=== PATIENT | male | born 1995 | race Caucasian/White ===

== ENCOUNTER 2020-12-02 09:47 | Inpatient (IN) | payer OTHER, SELFPAY ==
[2020-12-02] VITALS (14 sets, daily range): BP systolic 101–131; BP diastolic 56–77; PULSE 92–122; RESP 12–22; TEMP 36.8–37.7; O2SAT 92–97; BMI 30.4; BMI 27.3
--- NOTE | ~2020-12-02 | CT_ITS ---
EXAMINATION: CT SOFT TISSUE NECK WITHOUT CONTRAST CLINICAL INFORMATION: Concern for epiglottitis COMPARISON: None TECHNIQUE: Helical imaging was performed in the axial plane with generation of coronal and sagittal reformatted images. This CT examination was performed using dose optimization techniques as appropriate, variously including the following: *Automated exposure control *Adjustment of mA and/or kV according to patient size (this includes techniques or standardized protocols for targeted exams where dose is matched to indication/reason for exam; i.e. extremities or head) *Use of iterative reconstruction technique DLP: 495 mGy-cm FINDINGS: The epiglottis is normal. There is mild prominence of the palatine tonsils bilaterally consistent with tonsillitis .These are occluding the nasopharynx. The hypopharynx is normal as is the proximal trachea. There is no abscess. There are multiple mildly enlarged lymph nodes bilateral, primarily affecting the level 2A and 2B lymph nodes. These are likely reactive. CT/CT soft tissue neck wo con IMPRESSION: 1. Normal epiglottis. 2. Enlarged palatine tonsils consistent with tonsillitis. No abscess. 3. There are multiple mildly enlarged lymph nodes bilateral, primarily affecting the level 2A and 2B lymph nodes. These are likely reactive.
[2020-12-02 12:55] LABS: Mean Corpuscular Hemoglobin 28.5 pg (27.0-33.0); PLT CLUMP 1; Red Cell Distribution Width 14.8 % (11.0-16.0)
[2020-12-02 12:57] LABS: Hematocrit 42.7 % (42-52); Hemoglobin 14.8 g/dl (14.0-18.0); Mean Corpuscular HGB Conc 34.7 g/dl (31.0-36.0); Mean Corpuscular Volume 82.1 fL (80-98); Mean Platelet Volume 10.8 fL (9.4-12.4); Platelet Count 140 X10*3/uL (160-400)
[2020-12-02 13:05] LABS: WBC ABN SCTR FOR CBC 1
[2020-12-02 13:10] LABS: Alanine Aminotransferase 701 U/L (0-40); Albumin Level 3.7 g/dL (3.5-5.0); Alkaline Phosphatase 615 U/L (39-117); Anion Gap 14 (12-20); Aspartate Amino Transferase 242 U/L (5-37); Bilirubin Total 14.1 mg/dL (0.0-1.0); Blood Urea Nitrogen 9 mg/dL (9-16); Calcium 8.7 mg/dL (8.4-10.2); Carbon Dioxide 27 mmol/L (22-29); Chloride 94 mmol/L (96-108); Creatinine Clr Calc Pharmacy 133.9; Estimated Glomerular Filt Rate > 60; Glucose Random 95 mg/dL (60-115); Potassium 4.2 mmol/L (3.3-5.1); Sodium 131 mmol/L (135-145); Total Protein 8.2 g/dL (6.5-8.0)
--- NOTE | 2020-12-02 13:10 | ED.GENADULT ---
HPI - General Adult General Chief complaint: Upper Respiratory Symptoms Stated complaint: infection - Time Seen by Provider: 12/02/20 13:09 Source: patient Mode of arrival: ambulatory Limitations: no limitations History of Present Illness HPI narrative: 25-year-old male who is otherwise healthy presented for evaluation of rash and itching with facial swelling. Patient started by his ENT a week ago on a course of clindamycin for throat infection. Since yesterday patient started to have a diffuse rash with itching, swelling of the throat, with change of voice, but no difficulty breathing. Patient has been having issue with his throat for many weeks until he saw his ENT last week and start him on clindamycin. Patient declined fever or chills, no recent exposure to sick contacts. Patient is able to speak in a full sentence. Related Data Allergies Allergy/AdvReac Type Severity Reaction Status Date / Time No Known Allergies Allergy Verified 12/02/20 10:43 Review of Systems Review of Systems: All other systems are reviewed and are negative Constitutional: Reports as per HPI and Reports no additional constitutional complaints Eyes: Reports as per HPI and Reports no additional eye complaints Reports system reviewed and no additional complaints, except as documented Cardiovascular: Reports as per HPI and Reports no additional cardiovascular complaints Respiratory: Reports as per HPI and Reports no additional respiratory complaints Gastrointestinal: Reports as per HPI and Reports no additional gastrointestinal complaints Genitourinary: Reports no additional female genitourinary complaints Musculoskeletal: Reports no additional musculoskeletal complaints Skin/Breast: Reports system reviewed and no additional complaints, except as docu Psychiatric: Reports no additional psychiatric complaints Endocrine: Reports no additional endocrine complaints Hematologic/Lymphatic: Reports no additional hematologic/lymphatic complaints Allergic/Immunologic: Reports no additional allergic/immunologic complaints Reports system reviewed and no additional complaints, except as documented and Reports Abnormal speech present FORMERLY [facility], [facility] Past Medical History Medical History Patient denies having any allergies Patient denies medical problems Social History Social History Alcohol intake: never Patient Tobacco Use Status: Never used Tobacco Use of substances other than those prescribed or required for medical reasons: No Advance Directives: No Physical Exam Vital Signs: Vital Signs: Last Vital Signs Temp 98.7 F 12/02/20 15:49 Pulse 122 H 10/05/21 15:49 Resp 20 12/02/20 15:49 BP 131/63 12/02/20 15:49 Pulse Ox 96 12/02/20 15:49 Body Mass Index 30.4 Vital signs have been reviewed as appeared to be correct. Blood pressure normal. Heart rate normal. Respiration rate normal. Temperature normal. Oxygen saturation normal. Appearance: Alert. Oriented X3. No acute distress. Head: Normal external exam. Normocephalic. Atraumatic. No Gr signs noted. No raccoon eyes noted Eyes: PERRLA. EOMI. Conjunctiva and sclera normal. Eyelids normal. ENT: TM's Normal. Pharynx normal. The large it bilateral tonsils with white exudate, no stridor, no drooling. Uvula midline. Moist mucous membranes. No trismus noted. No drooling noted. Mild muffled voice noted. Neck: Normal inspection. Neck supple. FROM. No adenopathy. Thyroid Normal. No meningeal signs. No neck mass noted. CVS: Normal heart rate and rhythm. Heart sound normal. No murmurs noted. Pulses normal throughout. Respiratory: No respiratory distress. Painless inspiration. Breath sounds normal. No wheezes/rales/rhonchi noted. Chest nontender. No accessory muscle usage noted or decreased air movement noted. Abdomen: Soft and nontender. Bowel sounds normal in all 4 quadrants. No distention noted. No organomegaly noted. No visible injury noted. Back: No CVA tenderness. Full range of motion noted. Skin: Skin warm and dry. Normal skin color. Diffuse maculopapular rash on the arms and torso and face. Extremities: No lower extremity edema. Extremities exhibit normal range of motion. Extremities nontender. Neuro: Oriented X 3. Cranial nerve exam: II-XII are grossly intact No motor deficit. No sensory deficit. Reflexes normal. Course Course Course Narrative: Assessment and plan. 25-year-old male had Augmentin that was discontinued by the ENT doctor then replaced by clindamycin for a week, patient is showing leukocytosis with bandemia, patient also is showing transaminitis. 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 Continue with fluid/Solu-Medrol/Pepcid/epinephrine p.r.n.. Continue with hydration and discontinue with clindamycin. The case discussed with Dr. lee who will admit the patient to ICU. Medical Decision Making Lab Data Lab results reviewed: Yes I reviewed the patient's lab results. Result diagrams: 12/02/20 12:36 12/02/20 12:36 Labs: Lab Results 12/02/20 12/02/20 12/02/20 Range/Units 12:36 12:36 13:30 WBC 23.7 H (4.8-10.8) X10*3/uL RBC 5.20 (4.60-5.80) X10*6/uL Hgb 14.8 (14.0-18.0) g/dl Hct 42.7 (42-52) % MCV 82.1 (80-98) fL MCH 28.5 (27.0-33.0) pg MCHC 34.7 (31.0-36.0) g/dl RDW 14.8 (11.0-16.0) % Plt Count 140 L (160-400) X10*3/uL MPV 10.8 (9.4-12.4) fL Immature Gran % (Auto) Cancelled Neut % (Auto) Cancelled Lymph % (Auto) Cancelled Rush % (Auto) Cancelled Eos % (Auto) Cancelled Baso % (Auto) Cancelled Lymph # (Auto) Cancelled Rush # (Auto) Cancelled Eos # (Auto) Cancelled Baso # (Auto) Cancelled Abs Immat Gran (auto) Cancelled Absolute Neuts (auto) Cancelled Absolute Nucleated RBC 0.000 (0.0-0.012) X10*3/uL Nucleated RBC % (auto) 0.0 (0.0-0.2) /100WBC Neutrophils % (Manual) 16 L (45-73) % Band Neutrophils % 12 H (3-5) % Lymphocytes % (Manual) 40 (20-40) % Atypical Lymphs % (Man) 13 H (0-6) % Monocytes % (Manual) 14 H (2-11) % Metamyelocytes % 5 % Abs Neuts (Manual) 6.6 (2.2-7.9) X10*3/uL Lymphocytes # (Manual) 9.5 H (0.6-4.8) X10*3/uL Atyp Lymphs # (Manual) 3.1 x10*3/uL Monocytes # (Manual) 3.3 H (0.0-1.2) X10*3/uL Metamyelocytes # 1.2 X10*3/uL Platelet Estimate SLIGHTLY DECREASED (NORMAL) Plt Morphology Comment NORMAL RBC Morphology NOTED Polychromasia 1+ (0-2) /OIF Macrocytosis 1+ (5-14) /OIF Sodium 131 L (135-145) mmol/L Potassium 4.2 (3.3-5.1) mmol/L Chloride 94 L (96-108) mmol/L Carbon Dioxide 27 (22-29) mmol/L Anion Gap 14 (12-20) BUN 9 (9-16) mg/dL Creatinine 0.93 (0.5-1.4) mg/dL Estim Creat Clear Calc 133.9 Estimated GFR > 60 Random Glucose 95 (60-115) mg/dL Calcium 8.7 (8.4-10.2) mg/dL Total Bilirubin 14.1 H (0.0-1.0) mg/dL AST 242 H (5-37) U/L ALT 701 H (0-40) U/L Alkaline Phosphatase 615 H (39-117) U/L Total Protein 8.2 H (6.5-8.0) g/dL Albumin 3.7 (3.5-5.0) g/dL Acetaminophen (<30) mcg/mL Ethyl Alcohol mg/dL Coronavirus (PCR) NEGATIVE (Negative) Monoscreen (Negative) Influenza Type A (PCR) NEGATIVE (Negative) Influenza Type B (PCR) NEGATIVE (Negative) RSV RNA Qual (PCR) NEGATIVE (Negative) S. pyogenes GrpA HARMONY (Negative) 12/02/20 12/02/20 12/02/20 Range/Units 13:52 13:52 13:52 WBC (4.8-10.8) X10*3/uL RBC (4.60-5.80) X10*6/uL Hgb (14.0-18.0) g/dl Hct (42-52) % MCV (80-98) fL MCH (27.0-33.0) pg MCHC (31.0-36.0) g/dl RDW (11.0-16.0) % Plt Count (160-400) X10*3/uL MPV (9.4-12.4) fL Immature Gran % (Auto) Neut % (Auto) Lymph % (Auto) Rush % (Auto) Eos % (Auto) Baso % (Auto) Lymph # (Auto) Rush # (Auto) Eos # (Auto) Baso # (Auto) Abs Immat Gran (auto) Absolute Neuts (auto) Absolute Nucleated RBC (0.0-0.012) X10*3/uL Nucleated RBC % (auto) (0.0-0.2) /100WBC Neutrophils % (Manual) (45-73) % Band Neutrophils % (3-5) % Lymphocytes % (Manual) (20-40) % Atypical Lymphs % (Man) (0-6) % Monocytes % (Manual) (2-11) % Metamyelocytes % % Abs Neuts (Manual) (2.2-7.9) X10*3/uL Lymphocytes # (Manual) (0.6-4.8) X10*3/uL Atyp Lymphs # (Manual) x10*3/uL Monocytes # (Manual) (0.0-1.2) X10*3/uL Metamyelocytes # X10*3/uL Platelet Estimate (NORMAL) Plt Morphology Comment RBC Morphology Polychromasia /OIF Macrocytosis /OIF Sodium (135-145) mmol/L Potassium (3.3-5.1) mmol/L Chloride (96-108) mmol/L Carbon Dioxide (22-29) mmol/L Anion Gap (12-20) BUN (9-16) mg/dL Creatinine (0.5-1.4) mg/dL Estim Creat Clear Calc Estimated GFR Random Glucose (60-115) mg/dL Calcium (8.4-10.2) mg/dL Total Bilirubin (0.0-1.0) mg/dL AST (5-37) U/L ALT (0-40) U/L Alkaline Phosphatase (39-117) U/L Total Protein (6.5-8.0) g/dL Albumin (3.5-5.0) g/dL Acetaminophen < 1 (<30) mcg/mL Ethyl Alcohol < 10 mg/dL Coronavirus (PCR) (Negative) Monoscreen Positive A (Negative) Influenza Type A (PCR) (Negative) Influenza Type B (PCR) (Negative) RSV RNA Qual (PCR) (Negative) S. pyogenes GrpA HARMONY (Negative) 12/02/20 Range/Units 13:55 WBC (4.8-10.8) X10*3/uL RBC (4.60-5.80) X10*6/uL Hgb (14.0-18.0) g/dl Hct (42-52) % MCV (80-98) fL MCH (27.0-33.0) pg MCHC (31.0-36.0) g/dl RDW (11.0-16.0) % Plt Count (160-400) X10*3/uL MPV (9.4-12.4) fL Immature Gran % (Auto) Neut % (Auto) Lymph % (Auto) Rush % (Auto) Eos % (Auto) Baso % (Auto) Lymph # (Auto) Rush # (Auto) Eos # (Auto) Baso # (Auto) Abs Immat Gran (auto) Absolute Neuts (auto) Absolute Nucleated RBC (0.0-0.012) X10*3/uL Nucleated RBC % (auto) (0.0-0.2) /100WBC Neutrophils % (Manual) (45-73) % Band Neutrophils % (3-5) % Lymphocytes % (Manual) (20-40) % Atypical Lymphs % (Man) (0-6) % Monocytes % (Manual) (2-11) % Metamyelocytes % % Abs Neuts (Manual) (2.2-7.9) X10*3/uL Lymphocytes # (Manual) (0.6-4.8) X10*3/uL Atyp Lymphs # (Manual) x10*3/uL Monocytes # (Manual) (0.0-1.2) X10*3/uL Metamyelocytes # X10*3/uL Platelet Estimate (NORMAL) Plt Morphology Comment RBC Morphology Polychromasia /OIF Macrocytosis /OIF Sodium (135-145) mmol/L Potassium (3.3-5.1) mmol/L Chloride (96-108) mmol/L Carbon Dioxide (22-29) mmol/L Anion Gap (12-20) BUN (9-16) mg/dL Creatinine (0.5-1.4) mg/dL Estim Creat Clear Calc Estimated GFR Random Glucose (60-115) mg/dL Calcium (8.4-10.2) mg/dL Total Bilirubin (0.0-1.0) mg/dL AST (5-37) U/L ALT (0-40) U/L Alkaline Phosphatase (39-117) U/L Total Protein (6.5-8.0) g/dL Albumin (3.5-5.0) g/dL Acetaminophen (<30) mcg/mL Ethyl Alcohol mg/dL Coronavirus (PCR) (Negative) Monoscreen (Negative) Influenza Type A (PCR) (Negative) Influenza Type B (PCR) (Negative) RSV RNA Qual (PCR) (Negative) S. 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
[2020-12-02 13:22] LABS: Atypical Lymphs Percent Manual 13 % (0-6); Band Neutrophils Percent 12 % (3-5); Lymphocytes Percent Manual 40 % (20-40); Metamyelocytes Percent 5 %; Monocytes Percent Manual 14 % (2-11); Neutrophils Percent Manual 16 % (45-73)
[2020-12-02 13:24] LABS: Platelet Estimate SLIGHTLY DECREASED (NORMAL); Platelet Morphology Comment NORMAL; RBC Morphology NOTED
[2020-12-02 13:25] LABS: Macrocytosis 1+ (5-14) /OIF; Polychromasia 1+ (0-2) /OIF
[2020-12-02 13:26] LABS: Atypical Lymph Absolute Manual 3.1 x10*3/uL; Lymphocytes Absolute Manual 9.5 X10*3/uL (0.6-4.8); Metamyelocytes Absolute 1.2 X10*3/uL; Monocytes Absolute Manual 3.3 X10*3/uL (0.0-1.2); Neutrophils Absolute Manual 6.6 X10*3/uL (2.2-7.9); White Blood Count 23.7 X10*3/uL (4.8-10.8)
[2020-12-02] MEDS: diphenhydrAMINE HCL 50 MG/ML VIAL IVPUSH (14:01)
[2020-12-02] MEDS: Famotidine/PF 20 MG/2 ML VIAL IVPUSH (14:01)
[2020-12-02] MEDS: 0.9 % Sodium Chloride 1,000 ML 999 ML IVCONT (14:01)
[2020-12-02] MEDS: methylPREDNISolone Sod Succ 125 MG/2 ML VIAL IVPUSH ×2 (14:01→19:18)
--- NOTE | 2020-12-02 14:08 | PC.NURSE ---
patient a&ox3, c/o 09/06 sore throat, iv inserted, labs drawn, swabs performed, pt medicated per order, pt able to manage his own secretions, systemic red rash noted, vss, will continue to monitor.
[2020-12-02 14:12] LABS: Ethanol < 10 mg/dL
[2020-12-02 14:15] LABS: IDNOW Serial# 08D9AD1C; Strep A Nucleic Acid Negative (Negative)
[2020-12-02 14:19] LABS: Acetaminophen LAB < 1 mcg/mL (<30)
[2020-12-02] MEDS: EPINEPHrine 1 MG/ML VIAL 0.3 MG SUBCUT (14:45)
--- NOTE | 2020-12-02 14:49 | PC.NURSE ---
patient remains a&ox3, pt moved to room 7 for cardiac monitoring, advertising solicitor applied, pt sinus tach on monitor, vss, pt given epi per order, pt c/o throat pain, will continue to monitor
[2020-12-02 14:55] LABS: Monotest Positive (Negative)
--- NOTE | 2020-12-02 15:33 | PC.NURSE ---
patient a&ox3, clinical research monitor sinus tach, vitals stable, pt c/o throat pain, pt continues to have rash throughout his body however his face currently is less red than it was previously, pt able to manage his own secretions as well as manage his own airway, he is able to speak in full sentences will continue to monitor
[2020-12-02 15:38] LABS: Influenza A PCR NEGATIVE (Negative); Influenza B PCR NEGATIVE (Negative); Resp Syncy Virus RNA Qual PCR NEGATIVE (Negative); SARS COV2 PCR INHOUSE NEGATIVE (Negative)
--- NOTE | 2020-12-02 17:01 | PC.NURSE ---
patient a&ox3, pt sinus tach on monitor, visitor at bedside, will continue to monitor.
--- NOTE | 2020-12-02 17:34 | PM.CCHP ---
History of Present Illness Date of Service: 12/02/20 Attending physician on admission: Albert Vidal Chief Complaint: difficulty swallowing with throat pain and voice change 25-year-old with no past medical history with severe sore throat for several weeks initially treated with Augmentin and then switched 8 days prior to admission to clindamycin with persistent sore throat but it in the last 1 or 2 days progressive difficulty with swallowing but no drooling and the came in because of changing voice and here on exam was noted to have you choose a tonsils and cervical lymphadenopathy and on soft tissue examination on CT scan has no epiglottic swelling but has occurred a completely occluded nasopharyngeal passage Awilda by limb lymphoid tissue she and still has some exudate and or what looks like a red pharynx but the oral airway and the pharyngeal and laryngeal portions of the airway down to the trachea are all patent In addition he noted that he broke out in a rash which included some facial redness and swelling it is all over the trunk and upper extremities of his body as well as elevation of liver functions including a bilirubin of 14 and a cholestatic picture a and the SGPT is about 3 times the SGOT Review of Systems Review of Systems: Currently not complaining of of fever or chills just per to blood and plasma laboratory assistant throat soreness and his altered voice and of course the rash Yes all other systems are reviewed and are negative PMFSH Past Medical History Medical History Patient denies having any allergies Patient denies medical problems Social History Social History Household Members: Significant Other and Family Housing: House Do you presently have visiting nurse or other home services: No Alcohol intake: never Patient Tobacco Use Status: Never used Tobacco Second Hand Smoke Exposure: No Use of substances other than those prescribed or required for medical reasons: No Have you been hit, kicked, punched, or otherwise hurt by someone within the past year? If so, by whom?: No Do you feel safe in your current relationship?: Yes Is there a partner from a previous relationship who is making you feel unsafe now?: No Are you made to feel afraid or neglected: No Advance Directives: No Do you have thoughts of harming others: None Do you have a plan to hurt others: No Plan Recently lost weight without trying: No Nutrition Risks: No Nutritional Risk Poor oral hygiene: No Meds Allergies Allergy/AdvReac Type Severity Reaction Status Date / Time No Known Allergies Allergy Verified 12/02/20 10:43 Home Medications Medication Instructions Recorded Confirmed Last Taken Type No Known Home Meds 12/02/20 12/02/20 Unknown History Physical Exam Vital Signs: Vital Signs: Last Vital Signs Temp 98.7 F 12/02/20 15:49 Pulse 122 H 12/02/20 15:49 Resp 20 12/02/20 15:49 BP 131/63 12/02/20 15:49 Pulse Ox 96 12/02/20 15:49 Body Mass Index 30.4 Had very minimal low-grade temperature with good oxygen saturations no respiratory effort Chest is clear by x-ray and exam with no adventitious sounds and again no accessory muscle requirement Cardiac exam no gallops no murmurs no neck vein distension and he has good bilateral carotid upstrokes Abdomen is soft nontender Skin than a with a diffuse morbilliform type of rash and diffuse in erythroderma of his face Results Labs CBC and Chem 7: 12/03/20 05:16 12/03/20 05:16 Labs: Laboratory Results - last 24 hr 12/02/20 12/02/20 12/02/20 12:36 12:36 13:30 MCV 82.1 MCH 28.5 MCHC 34.7 RDW 14.8 Plt Count 140 L MPV 10.8 Immature Gran % (Auto) Cancelled Neut % (Auto) Cancelled Lymph % (Auto) Cancelled [place] % (Auto) Cancelled Eos % (Auto) Cancelled Baso % (Auto) Cancelled Lymph # (Auto) Cancelled [place] # (Auto) Cancelled Eos # (Auto) Cancelled Baso # (Auto) Cancelled Abs Immat Gran (auto) Cancelled Absolute Neuts (auto) Cancelled Absolute Nucleated RBC 0.000 Nucleated RBC % (auto) 0.0 Neutrophils % (Manual) 16 L Band Neutrophils % 12 H Lymphocytes % (Manual) 40 Atypical Lymphs % (Man) 13 H Monocytes % (Manual) 14 H Metamyelocytes % 5 Abs Neuts (Manual) 6.6 Lymphocytes # (Manual) 9.5 H Atyp Lymphs # (Manual) 3.1 Monocytes # (Manual) 3.3 H Metamyelocytes # 1.2 Platelet Estimate SLIGHTLY DECREASED Plt Morphology Comment NORMAL RBC Morphology NOTED Polychromasia 1+ (0-2) Macrocytosis 1+ (5-14) Anion Gap 14 Estim Creat Clear Calc 133.9 Estimated GFR > 60 Random Glucose 95 Calcium 8.7 Total Bilirubin 14.1 H AST 242 H ALT 701 H Alkaline Phosphatase 615 H Total Protein 8.2 H Albumin 3.7 Acetaminophen Ethyl Alcohol Coronavirus (PCR) NEGATIVE Monoscreen Influenza Type A (PCR) NEGATIVE Influenza Type B (PCR) NEGATIVE RSV RNA Qual (PCR) NEGATIVE S. pyogenes GrpA HARMONY 12/02/20 12/02/20 12/02/20 13:52 13:52 13:52 MCV MCH MCHC RDW Plt Count MPV Immature Gran % (Auto) Neut % (Auto) Lymph % (Auto) [place] % (Auto) Eos % (Auto) Baso % (Auto) Lymph # (Auto) [place] # (Auto) Eos # (Auto) Baso # (Auto) Abs Immat Gran (auto) Absolute Neuts (auto) Absolute Nucleated RBC Nucleated RBC % (auto) Neutrophils % (Manual) Band Neutrophils % Lymphocytes % (Manual) Atypical Lymphs % (Man) Monocytes % (Manual) Metamyelocytes % Abs Neuts (Manual) Lymphocytes # (Manual) Atyp Lymphs # (Manual) Monocytes # (Manual) Metamyelocytes # Platelet Estimate Plt Morphology Comment RBC Morphology Polychromasia Macrocytosis Anion Gap Estim Creat Clear Calc Estimated GFR Random Glucose Calcium Total Bilirubin AST ALT Alkaline Phosphatase Total Protein Albumin Acetaminophen < 1 Ethyl Alcohol < 10 Coronavirus (PCR) Monoscreen Positive A Influenza Type A (PCR) Influenza Type B (PCR) RSV RNA Qual (PCR) S. pyogenes GrpA HARMONY 12/02/20 13:55 MCV MCH MCHC RDW Plt Count MPV Immature Gran % (Auto) Neut % (Auto) Lymph % (Auto) [place] % (Auto) Eos % (Auto) Baso % (Auto) Lymph # (Auto) [place] # (Auto) Eos # (Auto) Baso # (Auto) Abs Immat Gran (auto) Absolute Neuts (auto) Absolute Nucleated RBC Nucleated RBC % (auto) Neutrophils % (Manual) Band Neutrophils % Lymphocytes % (Manual) Atypical Lymphs % (Man) Monocytes % (Manual) Metamyelocytes % Abs Neuts (Manual) Lymphocytes # (Manual) Atyp Lymphs # (Manual) Monocytes # (Manual) Metamyelocytes # Platelet Estimate Plt Morphology Comment RBC Morphology Polychromasia Macrocytosis Anion Gap Estim Creat Clear Calc Estimated GFR Random Glucose Calcium Total Bilirubin AST ALT Alkaline Phosphatase Total Protein Albumin Acetaminophen Ethyl Alcohol Coronavirus (PCR) Monoscreen Influenza Type A (PCR) Influenza Type B (PCR) RSV RNA Qual (PCR) S. 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: Status: Acute (2) Transaminitis: Status: Acute (3) Intrahepatic cholestasis: Status: Acute (4) Airway obstruction: Status: Acute (5) Mononucleosis, infectious, with hepatitis: Status: Acute Given both subcutaneous epinephrine as well as IV Solu-Medrol and given that he has been treated for more than 2 weeks with 2 different antibiotics will hold off on any further antibiotics due to what looks like a drug reaction to either the Augmentin or clindamycin and will observe overnight in the ICU in case of any further oral airway compromise Will discuss in the morning with Infectious Disease and obtain a throat culture swab to be sure that were not missing any secondary involvement either at anaerobic verses Haemophilus verses methicillin-resistant Staph
--- NOTE | 2020-12-02 17:49 | PC.NURSE ---
med req completed, pt states he was told by ENT yesterday to stop abx so pt is no longer on any home medications
--- NOTE | 2020-12-02 18:28 | PC.NURSE ---
patient a&ox3, pt airway patient, pt able to manage and swallow his own secretions, vitals continue to be stable, visitor at bedside, clear liquid dinner tray given, will continue to monitor.
--- NOTE | 2020-12-02 18:57 | PC.NURSE ---
patient a&ox3, threat monitoring analyst sinus tach, vitals stable, patient continues to intake clear liquids slowly, pt airway patient and patient able to swallow his own secretions, visitor at bedside, will continue to monitor.
--- NOTE | 2020-12-02 19:11 | PC.NURSE ---
icu to call back for report as they are in the middle of moving patients to make room for this admit
--- NOTE | 2020-12-02 19:25 | PC.NURSE ---
pt ambulated to bathroom to use urinal, pt had 1000ml output of dark yellow urine
[2020-12-03] VITALS (21 sets, daily range): BP systolic 99–145; BP diastolic 48–84; PULSE 79–108; RESP 13–26; TEMP 36.5–37.3; O2SAT 90–98; BMI 26.9
[2020-12-03 05:22] LABS: VBG Base Excess 0.9 mmol/L; VBG HCO3 24 mmol/L (22-26); VBG pCO2 36 mmHg; VBG pH 7.43 (7.32-7.43); VBG pO2 42 mmHg
[2020-12-03 05:45] LABS: Hematocrit 39.6 % (42-52); Hemoglobin 13.5 g/dl (14.0-18.0); Mean Corpuscular HGB Conc 34.1 g/dl (31.0-36.0); Mean Corpuscular Hemoglobin 27.7 pg (27.0-33.0); Mean Corpuscular Volume 81.3 fL (80-98); Mean Platelet Volume 10.5 fL (9.4-12.4); Platelet Count 170 X10*3/uL (160-400); Red Blood Count 4.87 X10*6/uL (4.60-5.80); Red Cell Distribution Width 14.6 % (11.0-16.0)
[2020-12-03 06:02] LABS: WBC ABN SCTR FOR CBC 1
[2020-12-03 06:03] LABS: White Blood Count 18.6 X10*3/uL (4.8-10.8)
[2020-12-03 06:08] LABS: Alanine Aminotransferase 542 U/L (0-40); Albumin Level 3.3 g/dL (3.5-5.0); Alkaline Phosphatase 528 U/L (39-117); Anion Gap 13 (12-20); Aspartate Amino Transferase 170 U/L (5-37); Bilirubin Total 11.4 mg/dL (0.0-1.0); Blood Urea Nitrogen 9 mg/dL (9-16); Calcium 8.4 mg/dL (8.4-10.2); Carbon Dioxide 27 mmol/L (22-29); Chloride 98 mmol/L (96-108); Creatinine Clr Calc Pharmacy 143.1; Estimated Glomerular Filt Rate > 60; Glucose Random 142 mg/dL (60-115); Magnesium 2.7 mg/dL (1.6-2.6); Potassium 4.9 mmol/L (3.3-5.1); Sodium 133 mmol/L (135-145); Total Protein 7.5 g/dL (6.5-8.0)
[2020-12-03 06:17] LABS: Atypical Lymph Absolute Manual 1.1 x10*3/uL; Atypical Lymphs Percent Manual 6 % (0-6); Band Neutrophils Percent 7 % (3-5); Lymphocytes Absolute Manual 5.6 X10*3/uL (0.6-4.8); Lymphocytes Percent Manual 30 % (20-40); Metamyelocytes Absolute 0.2 X10*3/uL; Metamyelocytes Percent 1 %; Monocytes Absolute Manual 1.3 X10*3/uL (0.0-1.2); Monocytes Percent Manual 7 % (2-11); Myelocytes Absolute 0.4 X10*/uL; Myelocytes Percent 2 %; Neutrophils Percent Manual 47 % (45-73)
[2020-12-03 06:18] LABS: RBC Morphology NOTED
[2020-12-03 06:20] LABS: Burr Cells 1+ (0-2) /OIF; Large Platelet PRESENT; Macrocytosis 1+ (5-14) /OIF; Platelet Estimate NORMAL (NORMAL); Platelet Morphology Comment NORMAL
[2020-12-03 06:21] LABS: Toxic Vacuolation PRESENT
[2020-12-03 06:22] LABS: Smudge Cells PRESENT
[2020-12-03 06:55] LABS: Venous Blood Gas Refer to POC result
--- NOTE | 2020-12-03 07:20 | PC.NURSE ---
ASSESSED PT THIS AM WITH DR DUMAS PT STATES FEELING BETTER, REMAINS TO HAVE RED RASH ON FACE BACK AND CHEST, HOWEVER PT REPORTS IT IS NOT ITCHY YESTERDAY. THROAT CULTURE OBTAINED BY DR DUMAS.
[2020-12-03 08:01] LABS: HBsAGNum1 0.14 S/CO (0.00-0.99); Hepatitis B Surface Antigen Negative (Negative); ~Hepatitis A Antibody IgM Nonreactive (Nonreactive); ~Hepatitis C Antibody Nonreactive (Nonreactive)
[2020-12-03 08:04] LABS: HBS Num1 0.11 mIU/mL (0-7.99); Hepatitis B Core Antibody Nonreactive (Nonreactive); ~Hepatitis B Surface Antibody NONREACTIVE (Nonreactive)
--- NOTE | 2020-12-03 08:25 | P.PNCC_ITS ---
Subjective Subjective Date of Service: 12/03/20 Interval History: A 25-year-old with infectious mononucleosis and tremendous bilateral tonsillar swelling but persistent inflammation and exudate but the whole nasopharyngeal airway is occluded by a lymphoid tissue but still has a comfortably patent oral airway and no evidence of epiglottic swelling or any swelling of the padmini epiglottic tissue by CT scan yet he has a white count with significant neutrophilia and left shift with prematures not just atypical lymphocytosis so I still wonder whether not it could be a superimposed bacterial infection and for that we await consult with Infectious Disease in but he clearly presented with what appears to be a Chang August like syndrome either related to his Augmentin or to the clindamycin Is only treatment was the Solu-Medrol and he does feel somewhat better Critical Care Time (minutes): 35 Physical Exam Vital Signs: Vital Signs: Last Vital Signs Temp 99.0 F 12/03/20 08:00 Pulse 92 12/03/20 08:00 Resp 14 12/03/20 08:00 BP 121/73 12/03/20 08:00 Pulse Ox 94 12/03/20 08:00 Body Mass Index 26.9 And awake alert and nonfocal neurologically Some fading of his skin rash and some improvement in his liver function tests Benign abdomen Clear chest Cardiac exam with good bilateral carotid upstrokes no neck vein distension Voice is still nasal Objective Data Labs CBC & Chem 7: 12/03/20 05:16 12/03/20 05:16 Labs: Laboratory Results - last 24 hr 12/02/20 12/02/20 12/02/20 12:36 12:36 13:30 WBC 23.7 H RBC 5.20 Hgb 14.8 Hct 42.7 MCV 82.1 MCH 28.5 MCHC 34.7 RDW 14.8 Plt Count 140 L MPV 10.8 Immature Gran % (Auto) Cancelled Neut % (Auto) Cancelled Lymph % (Auto) Cancelled [place] % (Auto) Cancelled Eos % (Auto) Cancelled Baso % (Auto) Cancelled Lymph # (Auto) Cancelled [place] # (Auto) Cancelled Eos # (Auto) Cancelled Baso # (Auto) Cancelled Abs Immat Gran (auto) Cancelled Absolute Neuts (auto) Cancelled Absolute Nucleated RBC 0.000 Nucleated RBC % (auto) 0.0 Neutrophils % (Manual) 16 L Band Neutrophils % 12 H Lymphocytes % (Manual) 40 Atypical Lymphs % (Man) 13 H Monocytes % (Manual) 14 H Metamyelocytes % 5 Myelocytes % Abs Neuts (Manual) 6.6 Lymphocytes # (Manual) 9.5 H Atyp Lymphs # (Manual) 3.1 Monocytes # (Manual) 3.3 H Metamyelocytes # 1.2 Myelocytes # Smudge Cells Toxic Vacuolation Platelet Estimate SLIGHTLY DECREASED Large Platelets Plt Morphology Comment NORMAL RBC Morphology NOTED Polychromasia 1+ (0-2) Macrocytosis 1+ (5-14) [place] Cells VBG pH VBG pCO2 VBG pO2 VBG HCO3 VBG O2 Saturation VBG Base Excess Sodium 131 L Potassium 4.2 Chloride 94 L Carbon Dioxide 27 Anion Gap 14 BUN 9 Creatinine 0.93 Estim Creat Clear Calc 133.9 Estimated GFR > 60 Random Glucose 95 Calcium 8.7 Phosphorus Magnesium Total Bilirubin 14.1 H AST 242 H ALT 701 H Alkaline Phosphatase 615 H Total Protein 8.2 H Albumin 3.7 Acetaminophen Ethyl Alcohol Coronavirus (PCR) NEGATIVE Monoscreen Influenza Type A (PCR) NEGATIVE Influenza Type B (PCR) NEGATIVE RSV RNA Qual (PCR) NEGATIVE S. pyogenes GrpA HARMONY 12/02/20 12/02/20 12/02/20 13:52 13:52 13:52 WBC RBC Hgb Hct MCV MCH MCHC RDW Plt Count MPV Immature Gran % (Auto) Neut % (Auto) Lymph % (Auto) [place] % (Auto) Eos % (Auto) Baso % (Auto) Lymph # (Auto) [place] # (Auto) Eos # (Auto) Baso # (Auto) Abs Immat Gran (auto) Absolute Neuts (auto) Absolute Nucleated RBC Nucleated RBC % (auto) Neutrophils % (Manual) Band Neutrophils % Lymphocytes % (Manual) Atypical Lymphs % (Man) Monocytes % (Manual) Metamyelocytes % Myelocytes % Abs Neuts (Manual) Lymphocytes # (Manual) Atyp Lymphs # (Manual) Monocytes # (Manual) Metamyelocytes # Myelocytes # Smudge Cells Toxic Vacuolation Platelet Estimate Large Platelets Plt Morphology Comment RBC Morphology Polychromasia Macrocytosis [place] Cells VBG pH VBG pCO2 VBG pO2 VBG HCO3 VBG O2 Saturation VBG Base Excess Sodium Potassium Chloride Carbon Dioxide Anion Gap BUN Creatinine Estim Creat Clear Calc Estimated GFR Random Glucose Calcium Phosphorus Magnesium Total Bilirubin AST ALT Alkaline Phosphatase Total Protein Albumin Acetaminophen < 1 Ethyl Alcohol < 10 Coronavirus (PCR) Monoscreen Positive A Influenza Type A (PCR) Influenza Type B (PCR) RSV RNA Qual (PCR) S. pyogenes GrpA HARMONY 12/02/20 12/03/20 12/03/20 13:55 05:16 05:16 WBC 18.6 H RBC 4.87 Hgb 13.5 L Hct 39.6 L MCV 81.3 MCH 27.7 MCHC 34.1 RDW 14.6 Plt Count 170 MPV 10.5 Immature Gran % (Auto) Cancelled Neut % (Auto) Cancelled Lymph % (Auto) Cancelled [place] % (Auto) Cancelled Eos % (Auto) Cancelled Baso % (Auto) Cancelled Lymph # (Auto) Cancelled [place] # (Auto) Cancelled Eos # (Auto) Cancelled Baso # (Auto) Cancelled Abs Immat Gran (auto) Cancelled Absolute Neuts (auto) Cancelled Absolute Nucleated RBC 0.000 Nucleated RBC % (auto) 0.0 Neutrophils % (Manual) 47 Band Neutrophils % 7 H Lymphocytes % (Manual) 30 Atypical Lymphs % (Man) 6 Monocytes % (Manual) 7 Metamyelocytes % 1 Myelocytes % 2 Abs Neuts (Manual) 10.0 H Lymphocytes # (Manual) 5.6 H Atyp Lymphs # (Manual) 1.1 Monocytes # (Manual) 1.3 H Metamyelocytes # 0.2 Myelocytes # 0.4 Smudge Cells PRESENT Toxic Vacuolation PRESENT Platelet Estimate NORMAL Large Platelets PRESENT Plt Morphology Comment NORMAL RBC Morphology NOTED Polychromasia Macrocytosis 1+ (5-14) [place] Cells 1+ (0-2) VBG pH VBG pCO2 VBG pO2 VBG HCO3 VBG O2 Saturation VBG Base Excess Sodium 133 L Potassium 4.9 Chloride 98 Carbon Dioxide 27 Anion Gap 13 BUN 9 Creatinine 0.77 Estim Creat Clear Calc 143.1 Estimated GFR > 60 Random Glucose 142 H D Calcium 8.4 Phosphorus 4.0 Magnesium 2.7 H Total Bilirubin 11.4 H AST 170 H ALT 542 H Alkaline Phosphatase 528 H Total Protein 7.5 Albumin 3.3 L Acetaminophen Ethyl Alcohol Coronavirus (PCR) Monoscreen Influenza Type A (PCR) Influenza Type B (PCR) RSV RNA Qual (PCR) S. pyogenes GrpA HARMONY Negative 12/03/20 05:17 WBC RBC Hgb Hct MCV MCH MCHC RDW Plt Count MPV Immature Gran % (Auto) Neut % (Auto) Lymph % (Auto) [place] % (Auto) Eos % (Auto) Baso % (Auto) Lymph # (Auto) [place] # (Auto) Eos # (Auto) Baso # (Auto) Abs Immat Gran (auto) Absolute Neuts (auto) Absolute Nucleated RBC Nucleated RBC % (auto) Neutrophils % (Manual) Band Neutrophils % Lymphocytes % (Manual) Atypical Lymphs % (Man) Monocytes % (Manual) Metamyelocytes % Myelocytes % Abs Neuts (Manual) Lymphocytes # (Manual) Atyp Lymphs # (Manual) Monocytes # (Manual) Metamyelocytes # Myelocytes # Smudge Cells Toxic Vacuolation Platelet Estimate Large Platelets Plt Morphology Comment RBC Morphology Polychromasia Macrocytosis [place]reet Cells VBG pH 7.43 VBG pCO2 36 VBG pO2 42 VBG HCO3 24 VBG O2 Saturation 65.0 VBG Base Excess 0.9 Sodium Potassium Chloride Carbon Dioxide Anion Gap BUN Creatinine Estim Creat Clear Calc Estimated GFR Random Glucose Calcium Phosphorus Magnesium Total Bilirubin AST ALT Alkaline Phosphatase Total Protein Albumin Acetaminophen Ethyl Alcohol Coronavirus (PCR) Monoscreen Influenza Type A (PCR) Influenza Type B (PCR) RSV RNA Qual (PCR) S. pyogenes GrpA HARMONY Quality Stroke Does the patient have a stroke diagnosis?: No VTE Prior VTE?: No VTE Risk Level:: Medical - low VTE Device Contraindication: Treatment Not Indicated VTE Drug Contraindication: Treatment Not Indicated Progress Note: A&P Assessment and plan (1) Airway obstruction: Status: Acute (2) Intrahepatic cholestasis: Status: Acute (3) [place]-August syndrome: Status: Acute (4) Transaminitis: Status: Acute (5) Mononucleosis, infectious, with hepatitis: Status: Acute Assessment and Plan: The plan I think is to transfer now to medical floor and discuss the possibility of coverage for anaerobe verses Haemophilus versus methicillin-resistant Staph etc. to be discussed
[2020-12-03] MEDS: methylPREDNISolone Sod Succ 40 MG/ML VIAL IVPUSH ×3 (08:38→19:55)
--- NOTE | 2020-12-03 14:46 | PC.NURSE ---
PT SEEN BY CASE MANAGEMENT
--- NOTE | 2020-12-03 15:43 | MHC.CM.PN ---
Met with pt to discuss d/c planning: Pt resides at home with his mother: works fulltime, no limitations or services in place. Pt states he will call family for transportation home: PCP is Jones Ortega (peds) however, pt is in the process of transitioning to adult medicine. No additional CM needs at this time. HCP declined.
--- NOTE | 2020-12-03 17:44 | W.PM.IDCN ---
History of Present Illness Data of Consult Service Date: 12/03/20 Requesting physician: Carmen Moralse Primary Care Provider: Jones Ortega MD HPI Reason for consult: multisystem illness He presents to hospital with sore throat ,worse last 2-3 days. He cannot swallow well He also has positive mono test and hepatitis. He is in ICU for airway monitoring. Review of Systems Review of Systems: Yes all other systems are reviewed and are negative PMFSH Past Medical History Medical History (Updated 12/03/20 @ 17:48 by Maddi Melton MD) Patient denies having any allergies Patient denies medical problems Rash Family History Family history: reviewed and not pertinent Social History Social History Household Members: Significant Other and Family Housing: House Do you presently have visiting nurse or other home services: No Alcohol intake: never Patient Tobacco Use Status: Never used Tobacco Second Hand Smoke Exposure: No Use of substances other than those prescribed or required for medical reasons: No Currently Displaying Signs/Symptoms of Drug Intoxication Withdrawal: No Have you been hit, kicked, punched, or otherwise hurt by someone within the past year? If so, by whom?: No Do you feel safe in your current relationship?: Yes Is there a partner from a previous relationship who is making you feel unsafe now?: No Are you made to feel afraid or neglected: No Advance Directives: No Do you have thoughts of harming others: None Do you have a plan to hurt others: No Plan Recently lost weight without trying: No Nutrition Risks: No Nutritional Risk Poor oral hygiene: No service: No Current occupational status: employed Meds Allergies Allergy/AdvReac Type Severity Reaction Status Date / Time No Known Allergies Allergy Verified 12/02/20 10:43 Active Medications: Current Medications Methylprednisolone Sodium Succinate (Methylprednisolone Sod Succ 40 Mg/Ml Vial) 40 mg IVPUSH Q6H CARRIE Last Admin: 12/03/20 15:40 Dose: 40 mg Documented by: Home Medications Medication Instructions Recorded Confirmed Last Taken Type No Known Home Meds 12/02/20 12/02/20 Unknown History Physical Exam Vital Signs: Vital Signs: Last Vital Signs Temp 98.6 F 12/03/20 14:00 Pulse 108 H 12/03/20 17:00 Resp 26 H 12/03/20 17:00 BP 99/48 L 10/06/21 17:00 Pulse Ox 95 12/03/20 17:00 Body Mass Index 26.9 Const: General: cooperative HENMT: Head: Yes normal to inspection Mouth: muffled voice and other (swollen kissing tonsils,exudate,cervical lymphadenopathy) Eyes: General: appearance normal, both eyes and all related structures Resp: Effort & Inspection: normal respiratory effort Cardio: Rate: regular rate Rhythm: regular rhythm GI: Palpation (GI): Soft to palpation (mild hepatomegaly) and nontender Skin: Other: whole body including palms maculopapular rash General skin exam: no rashes or lesions noted Results Labs CBC & Chem 7: 12/03/20 05:16 12/03/20 05:16 Labs: Short CBC 12/03/20 Range/Units 05:16 WBC 18.6 H (4.8-10.8) X10*3/uL Hgb 13.5 L (14.0-18.0) g/dl Hct 39.6 L (42-52) % Plt Count 170 (160-400) X10*3/uL BMP 12/03/20 05:16 Sodium 133 L Potassium 4.9 Chloride 98 Carbon Dioxide 27 BUN 9 Creatinine 0.77 Calcium 8.4 Liver Function 12/03/20 Range/Units 05:16 Total Bilirubin 11.4 H (0.0-1.0) mg/dL AST 170 H (5-37) U/L ALT 542 H (0-40) U/L Alkaline Phosphatase 528 H (39-117) U/L Albumin 3.3 L (3.5-5.0) g/dL Microbiology Microbiology Results: Microbiology 12/02/20 13:00 Blood - Venous Blood Culture - Preliminary No growth after 24 hours. 12/02/20 12:36 Blood - Venous Blood Culture - Preliminary No growth after 24 hours. Assessment and Plan (1) Airway obstruction: Status: Acute (2) Intrahepatic cholestasis: Status: Acute (3) Mononucleosis, infectious, with hepatitis: Status: Acute Likely mononucleosis due to EBV Evaluate hepatitis B,C,A,HIV,toxoplasmosis,no signs rubella (had shots),CMV. Doubt leukemia ,RA or SLE but check if not improving agree with steroids and no antibiotics (4) Rash: Status: Acute Believe rash is maculopapular related to penicillin sensitization due to mono. Doubt [place] spotted fever,syphilis,coxsackivirus or HSV No further antibiotics Workup above if no improvement. He has no travel
[2020-12-03 18:49] LABS: Syphilis Screen Nonreactive (Nonreactive)
[2020-12-04] MEDS: methylPREDNISolone Sod Succ 40 MG/ML VIAL IVPUSH ×3 (03:40→14:41)
[2020-12-04 04:00] VITALS: BP 131/64; PULSE 78; RESP 17; TEMP 36.7; O2SAT 97
[2020-12-04 05:07] LABS: HIV AB/AG Nonreactive (Nonreactive); HIV Num 1 0.07 S/CO (0.00-0.99)
[2020-12-04 06:00] VITALS: BMI 27.0
[2020-12-04 07:53] VITALS: BP 126/72; PULSE 88; RESP 18; TEMP 37.1; O2SAT 97
[2020-12-04 09:28] LABS: Hematocrit 38.4 % (42-52); Hemoglobin 13.4 g/dl (14.0-18.0); Mean Corpuscular HGB Conc 34.9 g/dl (31.0-36.0); Mean Corpuscular Hemoglobin 28.4 pg (27.0-33.0); Mean Corpuscular Volume 81.4 fL (80-98); Mean Platelet Volume 9.9 fL (9.4-12.4); Platelet Count 180 X10*3/uL (160-400); Red Blood Count 4.72 X10*6/uL (4.60-5.80)
[2020-12-04 09:29] LABS: WBC ABN SCTR FOR CBC 1
[2020-12-04 10:03] LABS: Alanine Aminotransferase 499 U/L (0-40); Albumin Level 3.4 g/dL (3.5-5.0); Alkaline Phosphatase 458 U/L (39-117); Anion Gap 13 (12-20); Aspartate Amino Transferase 152 U/L (5-37); Bilirubin Total 8.6 mg/dL (0.0-1.0); Blood Urea Nitrogen 12 mg/dL (9-16); Calcium 8.6 mg/dL (8.4-10.2); Carbon Dioxide 26 mmol/L (22-29); Chloride 98 mmol/L (96-108); Estimated Glomerular Filt Rate > 60; Glucose Fasting 172 mg/dL (60-99); Potassium 4.3 mmol/L (3.3-5.1); Sodium 133 mmol/L (135-145); Total Protein 7.4 g/dL (6.5-8.0)
[2020-12-04 10:07] LABS: Atypical Lymphs Percent Manual 4 % (0-6); Band Neutrophils Percent 6 % (3-5); Eosinophils Percent Manual 1 % (0-4); Lymphocytes Percent Manual 13 % (20-40); Metamyelocytes Percent 2 %; Monocytes Percent Manual 3 % (2-11); Neutrophils Percent Manual 71 % (45-73)
[2020-12-04 10:15] LABS: Platelet Estimate NORMAL (NORMAL); Platelet Morphology Comment NORMAL
[2020-12-04 10:18] LABS: Ovalocytes 1+ (5-14) /OIF; RBC Morphology NOTED
[2020-12-04 10:20] LABS: Atypical Lymph Absolute Manual 0.8 x10*3/uL; Eosinophils Absolute Manual 0.2 X10*3/UL (0.0-0.8); Lymphocytes Absolute Manual 2.5 X10*3/uL (0.6-4.8); Metamyelocytes Absolute 0.4 X10*3/uL; Monocytes Absolute Manual 0.6 X10*3/uL (0.0-1.2); Neutrophils Absolute Manual 14.9 X10*3/uL (2.2-7.9); White Blood Count 19.4 X10*3/uL (4.8-10.8)
[2020-12-04 11:22] VITALS: BP 138/79; PULSE 89; RESP 18; TEMP 36.7; O2SAT 95
--- NOTE | 2020-12-04 14:06 | PM.DS ---
DS: Providers Provider Date of Service: 12/04/20 Date of admission: 12/02/20 17:29 Date of discharge: 12/04/20 Primary care physician: Jones Ortega MD Consults: 12/03/20 08:10 Consult to Infectious Diseases Routine Consulting Provider: Maddi Melton Reason for consultation: infectious mono/persistent tonsillitis,lymphadenopathy Has provider been notified: Yes DS: Diagnosis Discharge Diagnosis (1) Airway obstruction: Status: Acute (2) Intrahepatic cholestasis: Status: Acute (3) Mononucleosis, infectious, with hepatitis: Status: Acute (4) Rash: Status: Acute DS: Summary Hospital Course Hospital Course: 25-year-old with no past medical history with severe sore throat for several weeks initially treated with Augmentin and then switched 8 days prior to admission to clindamycin with persistent sore throat but it in the last 1 or 2 days progressive difficulty with swallowing but no drooling and the came in because of changing voice and here on exam was noted to have you choose a tonsils and cervical lymphadenopathy and on soft tissue examination on CT scan has no epiglottic swelling but has occurred a completely occluded nasopharyngeal passage Awilda by limb lymphoid tissue she and still has some exudate and or what looks like a red pharynx but the oral airway and the pharyngeal and laryngeal portions of the airway down to the trachea are all patent In addition he noted that he broke out in a rash which included some facial redness and swelling it is all over the trunk and upper extremities of his body as well as elevation of liver functions including a bilirubin of 14 and a cholestatic picture a and the SGPT is about 3 times the SGOT. Patient was admitted to ICU and started on IV Decadron. Cultures were obtained and have been thus far negative. Over the course of next 48 hours he improved to the point of being discharged out of the unit to the floor and tolerated full liquid diet. At this point he is stable for discharge to advance diet as tolerated. He will complete an oral course of Decadron Status at Discharge Cognitive/behavioral status at discharge: Improved Time Spent with Patient Time attestation: Total time spent providing and/or coordinating discharge services: Discharge coordination time: Greater than 30 minutes Quality: Stroke Does the patient have a stroke diagnosis?: No Physical Exam Vital Signs: Vital Signs: Last Vital Signs Temp 98.0 F 12/04/20 11:22 Pulse 89 12/04/20 11:22 Resp 18 12/04/20 11:22 BP 138/79 12/04/20 11:22 Pulse Ox 95 12/04/20 11:22 Body Mass Index 27.0 Const: Other: Awake alert oriented x3 in no acute distress. Able to speak in full sentences HENMT: Other: Posterior pharynx; tonsils are inflamed but improved. There is approximately 0.5 cm gap between tonsils with marked exudate. Airway patent Neck: Other: No stridor appreciated Resp: Other: Clear to auscultation bilaterally. No rales rhonchi wheezes Cardio: Other: No S4; positive S1-S2; no S3 without murmurs or gallops GI: Other: Soft nontender nondistended with normoactive bowel sounds. There is no appreciable hepatosplenomegaly Neuro: Other: Age-appropriate nonfocal Extrem: Other: No edema bilateral DS: Data Data Completed and Pending Labs on day of discharge: Laboratory Results - last 24 hr 12/03/20 12/03/20 12/04/20 05:16 05:16 09:09 WBC 19.4 H RBC 4.72 Hgb 13.4 L Hct 38.4 L MCV 81.4 MCH 28.4 MCHC 34.9 RDW 15.0 Plt Count 180 MPV 9.9 Immature Gran % (Auto) Cancelled Neut % (Auto) Cancelled Lymph % (Auto) Cancelled [place] % (Auto) Cancelled Eos % (Auto) Cancelled Baso % (Auto) Cancelled Lymph # (Auto) Cancelled [place] # (Auto) Cancelled Eos # (Auto) Cancelled Baso # (Auto) Cancelled Abs Immat Gran (auto) Cancelled Absolute Neuts (auto) Cancelled Absolute Nucleated RBC 0.000 Nucleated RBC % (auto) 0.0 Neutrophils % (Manual) 71 Band Neutrophils % 6 H Lymphocytes % (Manual) 13 L Atypical Lymphs % (Man) 4 Monocytes % (Manual) 3 Eosinophils % (Manual) 1 Metamyelocytes % 2 Abs Neuts (Manual) 14.9 H Lymphocytes # (Manual) 2.5 Atyp Lymphs # (Manual) 0.8 Monocytes # (Manual) 0.6 Eosinophils # (Manual) 0.2 Metamyelocytes # 0.4 Platelet Estimate NORMAL Plt Morphology Comment NORMAL RBC Morphology NOTED Ovalocytes 1+ (5-14) Sodium Potassium Chloride Carbon Dioxide Anion Gap BUN Creatinine Estim Creat Clear Calc Estimated GFR Fasting Glucose Calcium Total Bilirubin AST ALT Alkaline Phosphatase Total Protein Albumin T.pallidum Ab (EIA) Nonreactive HIV 1&2 Ab/P24 Ag 4thGn Nonreactive 12/04/20 09:09 WBC RBC Hgb Hct MCV MCH MCHC RDW Plt Count MPV Immature Gran % (Auto) Neut % (Auto) Lymph % (Auto) [place] % (Auto) Eos % (Auto) Baso % (Auto) Lymph # (Auto) [place] # (Auto) Eos # (Auto) Baso # (Auto) Abs Immat Gran (auto) Absolute Neuts (auto) Absolute Nucleated RBC Nucleated RBC % (auto) Neutrophils % (Manual) Band Neutrophils % Lymphocytes % (Manual) Atypical Lymphs % (Man) Monocytes % (Manual) Eosinophils % (Manual) Metamyelocytes % Abs Neuts (Manual) Lymphocytes # (Manual) Atyp Lymphs # (Manual) Monocytes # (Manual) Eosinophils # (Manual) Metamyelocytes # Platelet Estimate Plt Morphology Comment RBC Morphology Ovalocytes Sodium 133 L Potassium 4.3 Chloride 98 Carbon Dioxide 26 Anion Gap 13 BUN 12 Creatinine 0.76 Estim Creat Clear Calc 145.0 Estimated GFR > 60 Fasting Glucose 172 H Calcium 8.6 Total Bilirubin 8.6 H AST 152 H ALT 499 H Alkaline Phosphatase 458 H Total Protein 7.4 Albumin 3.4 L T.pallidum Ab (EIA) HIV 1&2 Ab/P24 Ag 4thGn Preliminary micro results at discharge 12/03/20 Unknown Throat Culture - Preliminary Throat Culture in progress. 12/02/20 13:00 Blood Culture - Preliminary Blood - Venous No growth after 24 hours. 12/02/20 12:36 Blood Culture - Preliminary Blood - Venous No growth after 24 hours. Discharge Plan Discharge Patient Disposition: Home, Self-Care Discharge Diagnosis: Mononucleosis Referrals: Jones Ortega MD [Primary Care Provider] - 1 Week Discharge Medications: New dexamethasone [Decadron] 4 mg tablet See Rx Instructions .ROUTE .COMPLEX Qty: 18 RF: 0 No Action No Known Home Meds RF: 0 Discharge Orders: Discharge Order (Routine); Ordered 12/04/20 Ordered By: Kvng Pena Activity on Discharge: As tolerated Stand Alone Forms: Patient Portal Discharge page Care Plan Goals: Improved voice and airway Health Concerns: Allergy to penicillin Plan of Treatment: Follow-up with PCP Assessment: Improved
--- NOTE | 2020-12-04 14:23 | MHC.CM.PN ---
Patient has been medically cleared for dc to home today, no services.
== END 2020-12-04 16:14 | disposition home or self-care (01) | DRG 865 ==
LOC: HO.ED 17:22 → HO.EDOVER 17:39 → HO.ICU 19:00 → HO.S3 12-03 18:24
PROVIDERS: Internal Medicine; Registered Nurse Community Health; Admitting Provider Internal Medicine Cardiovascular Disease; Emergency Provider Emergency Medicine; PCP Pediatrics; Visit Provider Hospitalist
DX: B27.89 Other infectious mononucleosis with other complication (principal); K83.1 Obstruction of bile duct; L51.1 Stevens-Johnson syndrome; J39.2 Other diseases of pharynx
CPT/HCPCS: 0241U; 36415; 70490; 80053; 80143; 82077; 82803; 83735; 84100; 85007; 85025; 85027; 86308; 86704; 86706; 86709; 86780; 86803; 87040; 87071; 87340; 87389; 87651; 99285; J0171; J1200; J2920; J2930